=== PATIENT | female | born 1975 | race Caucasian/White ===

== ENCOUNTER → 2019-03-11 | Outpatient (CLI) | payer OTHER ==
[~2019-03-11] MED LIST: AMBIEN; AMBIEN 10 MG TA10 MG; AZITHROMYCIN; BUTALB-APAP-CA1 EACH; CELEXA40 MG; CLONAZEPAM 1 MG1 M1; FIORICET; FLEXERIL PO; WELLBUTRIN 100100 MG
== END ==
LOC: M.RAD 11:19
DX: M79.644 Pain in right finger(s) (principal); M79.89 Other specified soft tissue disorders